=== PATIENT | male | born 1970 | race Caucasian/White ===

== ENCOUNTER 2016-11-05 19:17 | Emergency (ER) | payer OTHER ==
[~2016-11-05 19:17] MED LIST: AUGMENTIN 875-1 EACH PO; BACTRIM DS TAB1 EACH PO; GLIMEPIRIDE2 MG PO; JANUVIA100 M1 PO; LOVASTATIN20 M1 PO; METFORMIN HCL500 M3 PO; VICODIN 5-3001 EACH PO; VICODIN ES 7.51 EACH PO
--- NOTE | 2016-11-05 20:08 | ED SKIN/ALLERGY COMPLAINT ---
History of Present Illness General Chief Complaint: General Adult Stated Complaint: PT ? INFECTION RG SIDE BELOW THE WAIST Source: patient, old records Exam Limitations: no limitations Vital Signs & Intake/Output Vital Signs & Intake/Output Vital Signs Date Time Temp Pulse Resp B/P Pulse O2 O2 Flow FiO2 Ox Delivery Rate 11/05 2052 98.6 94 18 134/80 98 Room Air Room Air 11/05 1929 98.7 106 22 132/83 98 Allergies Coded Allergies: NO KNOWN ALLERGIES (05/23/14) Reconcile Medications Amoxicillin 500 MG TABLET 1 TAB PO TID CELLULITIS Amoxicillin/Potassium Clav (Augmentin 875-125 Tablet) 1 EACH TABLET 1 TAB PO BID CELLULITIS Glimepiride 2 MG TABLET 1 TAB PO BID DIABETES (Reported) Hydrocodone/Acetaminophen (Vicodin Es 7.5-300 MG Tablet) 1 EACH TABLET 1 TAB PO TID PAIN Lovastatin 20 MG TABLET 1 TAB PO DAILY CHOLESTEROL (Reported) Metformin HCl 500 MG TABLET 1 TAB PO BID DIABETES (Reported) Oxycodone HCl/Acetaminophen (Percocet 5-325 MG Tablet) 5 MG-325 MG TABLET 1 TAB PO BID PRN BREAKTHROUGH PAIN Sitagliptin Phosphate (Januvia) 100 MG TABLET 1 TAB PO DAILY DIABETES ( Reported) Sulfamethoxazole/Trimethoprim (Bactrim Ds Tablet) 1 EACH TABLET 1 TAB PO BID ABSCESS Sulfamethoxazole/Trimethoprim (Bactrim Ds Tablet) 800 MG-160 MG TABLET 1 TAB PO BID ABSCESS Triage Note: PER PT ?ANOTHER INFECTION TO RT GROIN HX OF SAME, ?ABSCESS Triage Nurses Notes Reviewed? yes Onset: Abrupt Duration: day(s): (2), constant, getting worse Timing: recent history Severity: moderate Severity Numbers: 7 Possible Factors: no cause identified Associated Symptoms: DENIES HPI: 45-year-old male with history of previous skin abscesses presents complaining of a cyst to his right inguinal region for the past 2 days. He states he's been attempting to drain it at home without success. Pain is worse with palpation moderate aching constant. He denies any fevers or chills. He's had similar symptoms in the past requiring incision and drainage. There are no other modifying factors or associated symptoms otherwise urinary symptoms or pain (SIGRID COFFMAN) Past History Travel History Traveled to [place] past 21 day No Medical History Any Pertinent Medical History? 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 No (SIGRID COFFMAN) Review of Systems Review of Systems Constitutional: Reports: see HPI. All Other Systems: Reviewed and Negative Comments Review of systems: See HPI, All other systems negative. Constitutional, no chills no fever, no malaise HEENT: No visual changes no sore throat no congestion Cardiovascular: No chest pain , no palpitation , Skin,SEE HPI Respiratory: No dyspnea no cough no sputum GI: No nausea no vomiting, no diarrhea, : No dysuria Muscle skeletal: No joint pain, no joint swelling, no back pain, no neck pain, Neurologic: No numbness no headache Psych: No stress Heme/endocrine: No bruising no bleeding Immunology: No lymphadenopathy (SIGRID COFFMAN) Physical Exam Physical Exam General Appearance: well developed/nourished, no apparent distress, alert, awake Comments: Well-developed well-nourished patient in no apparent distress. HEENT: Atraumatic, extraocular motion intact Neck: Supple, FROM, Back: FROM, Cardiovascular: Regular rate and rhythms no murmurs rubs Respiratory: No respiratory distress. Patient speaking in full complete sentences. Breath sounds clear to auscultation bilaterally: NO W/R/R Extremities: full range of motion Neuro: Alert and oriented x3 Skin: Warm & dry; there is a 3 cm area of induration surrounding a fluctuant 1 cm abscess with overlying erythema tenderness to palpation Psych: Mood affect normal, normal memory normal judgment. (SIGRID COFFMAN) Progress Differential Diagnosis: abscess/cellulitis, contact dermatitis, drug reaction, HERNIA Plan of Care: Orders Procedure Date/time Status EXTREMETIES CULTURE 11/05 2040 Active Microbiology 11/05 2039 EXTREMITIE: Culture & Sensitivity - RECD 11/05 2039 EXTREMITIE: Gram Stain - RECD After verbal consent was obtained the area was anesthetized with lidocaine 1% 5 mL using 11 blade small incision was made small amount of purulent discharge was obtained and sent for culture. Blunt dissection sterile irrigation was performed sterile dressing was applied the patient was informed need for antibiotics pain medicine as needed for breakthrough pain. The patient will return to the ER in 48-72 hours return anytime sooner with any concerns answered all his questions, he feels comfortable with plan I discussed the medications that they will receive with the patient. I gave them signs and symptoms that could indicate an adverse reaction. I have advised them to limit their activities until they can see how they respond to the medication. (SIGRID COFFMAN) Departure Departure Time of Disposition: 2044 Disposition: HOME OR SELF CARE Condition: Stable Clinical Impression Primary Impression: Abscess Referrals: CHAMP OCHOA MD (PCP/Family) Additional Instructions: Amoxicillin and Bactrim as directed. Percocet for breakthrough pain only These prescriptions were sent to your pharmacy use caution as the Percocet is a narcotic and highly addictive no driving or drinking alcohol or operating machinery while taking. Keep area clean and covered return with any concerns Departure Forms: Customer Survey General Discharge Information Prescriptions: Current Visit Scripts Oxycodone HCl/Acetaminophen (Percocet 5-325 MG Tablet) 1 TAB PO BID PRN BREAKTHROUGH PAIN #8 TAB Amoxicillin 1 TAB PO TID #21 TAB Sulfamethoxazole/Trimethoprim (Bactrim Ds Tablet) 1 TAB PO BID #14 TAB (SIGRID COFFMAN) PA/MEALS ON WHEELS DRIVER Co-Sign Statement Statement: ED Attending supervision documentation- [] I saw and evaluated the patient. I have also reviewed all the pertinent lab results and diagnostic results. I agree with the findings and the plan of care as documented in the PA's/MEALS ON WHEELS DRIVER's documentation. x I have reviewed the ED Record and agree with the PA's/MEALS ON WHEELS DRIVER's documentation. [] Additions or exceptions (if any) to the PAs/MEALS ON WHEELS DRIVER's note and plan are summarized below: [] (JUNE CEDENO,RUT) Procedures Incision and Drainage Site: R INGUINAL Blade Size: 11 I & D Procedure: Yes: betadine prep, sterile drapes applied, sterile dressing applied. No: wick placed. (SIGRID COFFMAN)
[2016-11-05] MEDS ORDERED: AMOXICILLIN500 M3 PO (20:47)
[2016-11-05] MEDS ORDERED: BACTRIM DS TAB1 EACH PO (20:47)
[2016-11-05] MEDS ORDERED: PERCOCET 5-3251 EACH PO (20:47)
[2016-11-05 20:53] VITALS: BP 134/80
== END 2016-11-05 20:55 ==
LOC: ERH 19:17
DX: L02.214 Cutaneous abscess of groin (principal)
CPT/HCPCS: 87184; 87070; 87147; J3101

== ENCOUNTER 2017-02-23 01:55 | Emergency (ER) | payer OTHER ==
[~2017-02-23] VITALS: Ht 180.3 cm; Wt 129.3 kg
[~2017-02-23 01:55] MED LIST changes: +AMOXICILLIN500 M3 PO; +PERCOCET 5-3251 EACH PO
[2017-02-23] MEDS ORDERED: FARXIGA5 M1 PO (02:02)
[2017-02-23] MEDS ORDERED: PRILOSEC OTC20 M1 PO (02:02)
[2017-02-23] MEDS ORDERED: ZYRTEC10 M3 PO (02:02)
[2017-02-23] MEDS ORDERED: ASPIRIN81 M4 PO (02:02)
[2017-02-23 02:12] VITALS: BP 148/96
--- NOTE | 2017-02-23 02:14 | ED THROAT/DENTAL COMPLAINT ---
History of Present Illness General Chief Complaint: Sore Throat, Dental Pain Stated Complaint: LT EAR PAIN/ SORE THROAT Source: patient, old records Exam Limitations: no limitations Vital Signs & Intake/Output Vital Signs & Intake/Output Vital Signs Date Time Temp Pulse Resp B/P B/P Pulse O2 O2 Flow FiO2 Mean Ox Delivery Rate 02/23 219 96.2 02/232 148/96 02/234 98 Room Air 02/23 200 96.2 87 18 164/98 98 Room Air Allergies Coded Allergies: No Known Allergies (02/23/17) Reconcile Medications Amoxicillin 500 MG TABLET 1 TAB PO TID PHARYNGITIS Aspirin (Aspirin*) 81 MG TAB.CHEW 1 TAB PO DAILY HEART HEALTH (Reported) Cetirizine HCl (Zyrtec) 10 MG TABLET 1 TAB PO DAILY ALLERGIES (Reported) Dapagliflozin Propanediol (Farxiga) 5 MG TABLET 1 TAB PO DAILY DM (Reported) Glimepiride 2 MG TABLET 1 TAB PO BID DIABETES (Reported) Lovastatin 20 MG TABLET 1 TAB PO DAILY CHOLESTEROL (Reported) Metformin HCl 500 MG TABLET 1 TAB PO BID DIABETES (Reported) Omeprazole Magnesium (Prilosec Otc) 20 MG TABLET.DR 1 TAB PO DAILY GERD ( Reported) Sitagliptin Phosphate (Januvia) 100 MG TABLET 1 TAB PO DAILY DIABETES ( Reported) Triage Note: TRIAGE: PATIENT TO ER FROM HOME W/ L EAR PAIN X 2 WEEKS AND THROAT PAIN TONIGHT. 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 Triage Nurses Notes Reviewed? yes HPI: Patient states that he has had a sore throat for the past 2 weeks. Patient states that he went to a walk-in center approximately week and a half ago and they saw Sebastian was negative for strep so told him it was allergies. Patient has been taking Zyrtec and was feeling better until this evening when the sore throat came back and it is now radiating to his left ear. The pain is sharp and scratchy in nature. The pain is exacerbated with swallowing. There is no difficulty swallowing or difficulty breathing. There is no fever but there are positive chills. There is no nausea or vomiting. Past History Travel History Traveled to [place] past 21 day No Medical History Any Pertinent Medical History? 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 No Review of Systems Review of Systems Constitutional: Reports: see HPI, chills. EENTM: Reports: see HPI, ear pain, throat pain. Respiratory: Reports: no symptoms. Cardiovascular: Reports: no symptoms. GI: Reports: no symptoms. Musculoskeletal: Reports: no symptoms. Neurological/Psychological: Reports: no symptoms. Immunologic/Allergic: Reports: no symptoms. Physical Exam Physical Exam General Appearance: well developed/nourished, alert, awake, moderate distress Head: atraumatic Eyes: Bilateral: PERRL, EOMI. Ears: Bilateral: canal normal, Tympanic normal. Mouth/Throat: tonsillar exudate, tonsillar swelling Neck: supple, full range of motion, lymphadenopathy (R), lymphadenopathy (L) Cardiovascular/Respiratory: normal breath sounds, normal peripheral pulses, regular rate/rhythm, no respiratory distress Neurologic/Psych: no motor/sensory deficits, awake, alert, oriented x 3, normal gait, normal mood/affect Core Measures ACS in differential dx? No Severe Sepsis Present: No Septic Shock Present: No Progress Differential Diagnosis: strep pharyngitis Plan of Care: Orders Procedure Date/time Status THROAT CULTURE W/QUICK STREP 02/23 0211 Active Comments: PT ADVISED TO FOLLNata MARQUIS WITH HIS DOCTOR ABOUT HIS BLOOD PRESSURE. Departure Departure Disposition: HOME OR SELF CARE Condition: Stable Clinical Impression Primary Impression: Pharyngitis Referrals: OCHOA CHAMP CEDENO (PCP/Family) Additional Instructions: DRINK PLENTY OF FLUIDS RETURN FOR ANY COCNERNS Departure Forms: Customer Survey General Discharge Information Prescriptions: Current Visit Scripts Amoxicillin 1 TAB PO TID #30 TAB
[2017-02-23] MEDS ORDERED: AMOXICILLIN500 M3 PO (02:22)
== END 2017-02-23 02:41 ==
LOC: ERH 01:55
DX: J02.9 Acute pharyngitis, unspecified (principal)